=== PATIENT | female | born 1995 | race Caucasian/White ===

== ENCOUNTER 2018-07-01 22:38 | Emergency (ER) | payer OTHER, SELFPAY ==
[2018-07-01 22:39] VITALS: BP 134/74; PULSE 66; RESP 14; TEMP 36.8; O2SAT 100; BMI 19.3
--- NOTE | 2018-07-01 23:01 | ED.DCSUM_ITS ---
- ER Visit Summary Date of Service: 07/01/18 Chief Complaint: Concern for iron toxicity History of Present Illness: The patient is a 22 F who states for the past several months she has been on ferrous sulfate for anemia. She has been seen in a labor and delivery registered nurse in [place]. She states that a couple days ago other concerns for some skin discoloration of her hands and feet as well as feeling tired and sore she called her labor and delivery registered nurse who was changed to ferrex. She tells me that for the past day she has had some intermittent abdominal cramping. She went saw her mom damian who noticed the skin discoloration and they decided that this should not wait on Wednesday without being evaluated and brought her to the emergency department. She has no upcoming appointments with her doctors. Physical Examination: Afebrile vital signs are stable Gen: Well-nourished well-developed Head: Normocephalic atraumatic Eyes: Perrl EOMI ENT: TMs clear no rhinorrhea moist mucous membranes Neck: Supple no lymphadenopathy no JVD nontender CVS: Regular rate rhythm no murmurs normal S1-S2 Respiratory: No distress clear to auscultation bilaterally chest nontender Abdomen: Soft nontender nondistended normal bowel sounds no masses no hepatomegaly or splenomegaly noted Back: Nontender Extremity: Nontender no edema Skin: There is some dark yellow/bronzing of the palms and soles. Neuro: alert orientated ?3 CN II-XII intact normal strength sensation reflexes gait cerebellar Psych: Normal affect normal mood Test Results: Hemoglobin 13.1. Potassium 3.2. Creatinine 1.13. Liver enzymes are normal. Patency test is negative. Serum ferritin is 9. TIBC is 603. Emergency Department Course and Treatment: Recommend to the patient that she states her symptoms are worse since the switch of medications that she stopped the medication and she follow-up with her labor and delivery registered nurse next week. She is comfortable with this plan. Impression: 1. Iron medication side effect This note was generated with [employer] dictation software. It may contain incorrect words, spelling, and punctuation that were not noted in review of the chart prior to signing ED Disposition - Plan for ED Patient: Disposition: Home or Assisted Living Instructions: ED Drug React Adverse Other Additional Instructions: You need to call your labor and delivery registered nurse on Wednesday to schedule outpatient follow-up Go ahead and stop your current iron medication.
[2018-07-01 23:34] LABS: Absolute Lymphocyte Count 3.14 X10^3/ul (0.83-4.51); Absolute Neutrophil Count 3.5 X10^3/uL (2.0-7.7); Basophil# 0.04 X10^3/uL; Basophil% 0.5 % (0-1); Eosinophil# 0.11 X10^3/uL; Eosinophils% 1.5 % (0-5); Hematocrit 39.8 % (37-47); Hemoglobin 13.1 g/dl (12.0-15.0); Lymphocyte # 3.14 X10^3/ul (4.0); Lymphocyte % 41.8 % (19-41); Mean Corp Hgb Conc 32.9 g/gl (32-36); Mean Corpuscular Hgb 30.5 pg (27.0-32.0); Mean Corpuscular Volume 92.8 fL (81-99); Mean Platelet Vol. 9.1 fl (6.2-12.0); Monocyte# 0.69 X10^3/uL; Monocyte% 9.2 % (0-10); Neutrophil # 3.54 X10^3/uL (2.7-7.7); Platelet Count 351 K/mm3 (150-450); RBC Distribution Width CV 14.5 % (11.6-14.6); RBC Distribution Width SD 44.8 fl (35.1-43.9); Red Blood Count 4.29 M/mm3 (4.2-5.4); White Blood Count 7.5 K/mm3 (4.4-11.0)
[2018-07-01 23:36] LABS: POSITIVE COUNT NO; POSITIVE DIFFERENTIAL NO; POSITIVE MORPHOLOGY NO
[2018-07-01 23:39] LABS: AST(SGOT) 15 U/L (15-37); Alanine Aminotransfer ALT/SGPT 18 U/L (13-56); Alkaline Phosphatase 85 U/L (45-117); Anion Gap 6 (5-15); BUN 13 mg/dL (7-18); BUN/Creat Ratio 11.5 RATIO (10-20); Bilirubin, Direct 0.08 mg/dL (0.00-0.30); Calcium,Total 9.1 mg/dL (8.5-10.1); Chloride 104 mmol/L (98-107); Creatinine, Serum 1.13 mg/dL (0.55-1.02); EST Glomerular Filtration Rate 64 mL/min (>60); Est Glom Filt Rate - Afr Amer 77 mL/min (>60); Ferritin 9 ng/mL (8-252); Glucose 80 mg/dL (74-106); Iron Binding Capacity,Total 603 ug/dL (250-450); Potassium 3.2 mmol/L (3.5-5.1); Sodium Level 140 mmol/L (136-145)
[2018-07-01 23:44] LABS: Pregnancy, Serum, hCG Quali. NEGATIVE Negative (0-9 Nonpreg)
[2018-07-02 00:04] VITALS: BP 118/76; PULSE 88; RESP 16; O2SAT 100
== END 2018-07-02 00:04 | disposition home or self-care (01) ==
PROVIDERS: Emergency Provider Emergency Medicine
DX: L98.8 Other specified disorders of the skin and subcutaneous tissue (principal); T45.4X5A Adverse effect of iron and its compounds, initial encounter; D64.9 Anemia, unspecified
CPT/HCPCS: 80048; 80076; 82728; 83550; 84703; 85025; 99284; A4216